=== PATIENT | male | born 1955 | race Two or more races ===

== ENCOUNTER 2017-01-17 11:55 | Emergency (ER) | payer OTHER ==
[~2017-01-17] VITALS: Ht 180.3 cm; Wt 75.3 kg
[~2017-01-17 11:55] MED LIST: APIX5TAB PO; ASPI-621 PO; ATOR20TA9 PO; LISI-167 PO; METF500T4 PO
[2017-01-17] MEDS ORDERED: LOSA25TA5 PO (13:24)
[2017-01-17 13:28] LABS: HEMATOCRIT 40.3 % (39.2-51.8); HEMOGLOBIN 13.6 g/dL (13.7-18.0); WHITE BLOOD COUNT 5.5 x10^3/uL (3.4-10)
[2017-01-17 13:39] LABS: BLOOD UREA NITROGEN 12 mg/dL (7-18)
[2017-01-17 14:31] VITALS: BP 121/80
== END 2017-01-17 14:35 | disposition home or self-care (01) ==
LOC: ED 14:16
DX: I10 Essential (primary) hypertension (principal)
CPT/HCPCS: 36415; 80048; 82040; 85025; 93005; 99285

== ENCOUNTER 2017-07-30 17:16 | Emergency (ER) | payer OTHER ==
[~2017-07-30] VITALS: Ht 180.3 cm; Wt 75.3 kg
[~2017-07-30 17:16] MED LIST changes: +LOSA25TA5 PO
[2017-07-30 17:23] VITALS: BP 160/83
[2017-07-30 18:29] LABS: BASOPHILS # (AUTO) 0.02 x10^3/uL (0-0.1); BASOPHILS % (AUTO) 0 % (0-1); EOSINOPHILS # (AUTO) 0.23 x10^3/uL (0-0.4); EOSINOPHILS % (AUTO) 3 % (1-7); LYMPHOCYTES # (AUTO) 2.15 x10^3/uL (1-3.4); LYMPHOCYTES % (AUTO) 31 % (22-44); MD NO; MEAN CORPUSCULAR HGB CONC 33.5 g/dL (33.2-36.2); MEAN CORPUSCULAR VOLUME 95.5 fL (81-97); MEAN PLATELET VOLUME 8.3 fL (7.4-10.4); MONOCYTES % (AUTO) 7 % (2-9); NEUTROPHILS # (AUTO) 4.06 x10^3/uL (1.8-6.8); NEUTROPHILS % (AUTO) 58 % (42-75); PLATELET COUNT 158 x10^3/uL (130-400); RED BLOOD COUNT 4.61 x10^6/uL (4.38-5.82); RED CELL DISTRIBUTION WIDTH 13.4 % (9.4-14.8)
[2017-07-30 18:34] LABS: ALANINE AMINOTRANSFERASE 32 U/L (12-78); ANION GAP 5 mmol/L (5-15); CALCIUM 8.7 mg/dL (8.5-10.1); CHLORIDE 106 mmol/L (98-107); CREATININE 0.96 mg/dL (0.7-1.3)
[2017-07-30 18:36] LABS: ALKALINE PHOSPHATASE 60 U/L (45-117); BILIRUBIN,TOTAL 0.6 mg/dL (0.2-1.0)
[2017-07-30 18:46] LABS: TROPONIN I < 0.015 ng/mL (0.000-0.045)
== END 2017-07-30 19:54 | disposition home or self-care (01) ==
LOC: ED 19:15
DX: Z00.01 Encounter for general adult medical examination with abnormal findings (principal); I10 Essential (primary) hypertension; E11.9 Type 2 diabetes mellitus without complications
CPT/HCPCS: 36415; 80053; 84484; 85025; 93005; 99285